=== PATIENT | male | born 1950 | race Caucasian/White ===

== ENCOUNTER 2019-12-16 06:39 | Day surgery (SDC) | payer OTHER ==
--- NOTE | 2019-12-11 14:25 | RAD REPORT ---
EXAM DESCRIPTION: RAD - Chest Pa And Lat (2 Views) - 12/11/2019 2:19 pm CLINICAL HISTORY: pre op Chest pain. COMPARISON: Thorax W/ Con dated 07/24/2018; RAD CHEST PA AND LAT (2 VIEWS) dated 12/20/2014 TECHNIQUE: PA and lateral views of the chest were obtained. FINDINGS: The lungs are hyperexpanded compatible with COPD. The heart is upper limit of normal in si ze. No fracture or aggressive bony process. IMPRESSION: COPD without acute process identified.
--- NOTE | 2019-12-11 15:03 | EKG ---
Test Date: 2019-12-11 Test Time: 14:33:39 Bus Matron: ANTOINE MEASUREMENT RESULTS: Intervals: Rate: 57 ME: 192 QRSD: 88 QT: 432 QTc: 420 Brent: P: 108 ME: 192 QRS: -2 T: 74 INTERPRETIVE STATEMENTS: Sinus bradycardia Otherwise normal ECG Compared to ECG 07/24/2018 15:37:02 Incomplete right bundle-branch block no longer present Electronically Signed On 12-11-19 15:02:38 CDT by Terry Clemons
[2019-12-11 15:05] LABS: Absolute Lymphocytes (CBC) 0.6 K/uL (0.7-4.9); Basophils % 0.7 % (0-1.3); Lymphocytes % 9.9 % (15.3-44.8); RBC Red Blood Cell Count 4.38 M/uL (4.33-5.43)
[2019-12-11 15:18] LABS: Potassium 4.6 mmol/L (3.5-5.1)
--- OUTSIDE RECORDS SUMMARY | 2019-12-16 06:42 | XMS REPORT | Continuity of Care Document ---
:1950 Author Organization [facility] t Address [facility] [place] [id number] Care Team Providers Name Role Phone Unavailable Unavailable Unavailable Problems This patient has no known problems. Allergies, Adverse Reactions, Alerts This patient has no known allergies or adverse reactions. Medications This patient has no known medications. Procedures This patient has no known procedures. Results This patient has no known results.
[2019-12-16] MEDS ORDERED: Ringers Lactate 1,000 ML IV ONE ×2 (07:14→09:19)
[2019-12-16] MEDS ORDERED: BUPIVACAINE 0.5% PF 10 ML VIAL ONE (07:22)
[2019-12-16] MEDS ORDERED: ROCURONIUM 50 MG/5 ML VIAL IV ONE (07:24)
[2019-12-16] MEDS ORDERED: propofoL 200 MG/20 ML VIAL IV ONE (07:24)
[2019-12-16] MEDS ORDERED: LIDOCAINE 2% MPF 5 ML VIAL ONE (07:24)
[2019-12-16] MEDS ORDERED: FENTANYL CITR 100 MCG/2 ML ONE (07:24)
[2019-12-16] MEDS ORDERED: MIDAZOLAM HCL 2 MG/2 ML INJ ONE (07:25)
[2019-12-16] MEDS ORDERED: CEFAZOLIN/SWI 1gm 1 GM/10 ML SYR ONE (08:17)
[2019-12-16] MEDS ORDERED: EPHEDRINE SULF 50 MG/ML VIAL ONE (08:34)
[2019-12-16] MEDS ORDERED: NS 0.9% VIAL 10 ML ONE (08:34)
[2019-12-16] MEDS ORDERED: Phenylephrine HCl 10 MG/ML 1 ML VIAL ONE (08:34)
[2019-12-16] MEDS ORDERED: dexAMETHasone 10 MG/ML VIAL ONE (08:46)
[2019-12-16] MEDS ORDERED: KETOROLAC 30 MG/ML INJ ONE (08:47)
[2019-12-16] MEDS ORDERED: ONDANSETRON 4 MG/2 ML VIAL ONE (08:47)
--- NOTE | 2019-12-16 09:07 | P.BOP ---
Preoperative diagnosis: large incarcerated right inguinal hernia Postoperative diagnosis: same Primary procedure: open repair large incarcerated right inguinal hernia with mesh Heating And Cooling Technician: MESFIN DOUGLAS (FRONT LINE LEADER) Estimated blood loss: <10cc Specimen: gb Findings: as sbove Anesthesia: General Complications: None Drain(s): Other (mesh sheet and plug) Transferred to: Recovery Room Condition: Good
--- NOTE | 2019-12-16 09:20 | P.BOP ---
Preoperative diagnosis: large incarcerated right inguinal hernia Postoperative diagnosis: same Primary procedure: open repair large incarcerated right inguinal hernia with mesh Hand Cooper Helper: MESFIN DOUGLAS (HAND TRIMMER) Estimated blood loss: <10cc Specimen: gb Complications: None Drain(s): Other (mesh sheet and plug) Transferred to: Recovery Room Condition: Good
--- NOTE | 2019-12-16 10:04 | OP ---
Surgeon: Ameya Holder MD Preoperative Diagnosis: Large incarcerated right inguinal hernia. Postoperative Diagnosis: Large incarcerated right inguinal hernia. Procedure: Open repair of tender right incarcerated inguinal hernia with mesh. Anesthesia: General plus local. Implants: Mesh is large mesh plug and sheath. Complications: None. Estimated Blood Loss: Less than 10 mL. Indications: This is a case of a 69-year-old patient, who comes to us with a large tender right ingu inal hernia with intestines coming through, feeling pain and discomfort over the area and he wants th at fixed. Benefits, alternatives, and risks of open repair of large right inguinal hernia with mesh fully discussed with the patient, which include, but not limited to infection, bleeding, damage to ad jacent structures, anesthesia complication, recurrence, DC, and even . He also understands this may not relieve his symptoms. He might need more than one surgical intervention. He has some chron ic pain and numbness of the area. He signed a consent. He was explained the most likely use of mesh in that area. Pros and cons of mesh placement were discussed with the patient. After understanding and allowing to ask questions, answered to his satisfaction, he did consent for mesh use. He unders tands right now we are in a situation and country with coronavirus. He understands the risks of cont racting coronavirus and the risks of it. He still has tenderness and intestines coming through in an d out and he is very concerned about that, so he wants that repaired now. The benefits, alternatives , and risks fully explained again. Description Of Procedure: The patient was brought to the operating room, placed in supine position. Anesthesia was done without complication. A time-out was called. Abdomen and inguinal area were pr epped and draped in a sterile fashion. Local anesthesia was applied, followed by sharp incision of t he skin in the right inguinal region. Incision was carried down to fascia. Kirk's fascia was open ed and then we found external oblique aponeurosis that was opened in direction of the fibers to conne ct to the superficial inguinal ring. The ilioinguinal nerve and iliohypogastric nerve were identifie d and protected behind external oblique aponeurosis and Mary was placed around the spermatic cord. At that moment, I proceeded to identify the spermatic cord structures. The hernia sac was separate d from the spermatic cord structures open. Small bowel reduced into the abdominal cavity after fully inspecting and making sure it is viable. The hernia sac was twisted and sutured with a 2-0 Prolene. At that moment, I proceeded to place a mesh plug over the area of the right inguinal ring and secur ed in place with VersaTack. After that, I placed a mesh sheet securing that to the pubic tubercle, s helving edge of inguinal ligament, transversalis fascia and the tail of this looped around the sperma tic cord without strangulation. At that moment, I proceeded then to place the ilioinguinal nerve and iliohypogastric nerve back into the inguinal canal, reconstructed the superficial inguinal ring, and closed the external oblique aponeurosis with 2-0 Prolene. Area was irrigated. Hemostasis was obtai ignacio. After that, Kirk's fascia was closed with 3-0 chromic and the skin with stanford. Sponge coun t and instrument counts were correct. The patient tolerated the procedure well. The patient sent to recovery in stable condition. OMAR/SCARLETT Voice ID: [id number] Report ID: [id number]
--- NOTE | 2019-12-16 10:07 | DS ---
Diagnosis: Incarcerated tender right inguinal hernia. Procedure: Open repair of incarcerated tender right inguinal hernia with mesh. Disposition: Home. Activity: As tolerated. No heavy lifting. Plan: Follow up in my office in 1 week. Call for appointment [phone]. Medication includes Tylenol No. 3 q.4 hours p.r.n. pain, Bactrim DS p.o. b.i.d. Cover the area for the next 48 hours and then m ay shower. Cold compress over the right inguinal region for 24 hours. OMAR/SCARLETT Voice ID: [id number] Report ID: [id number]
[2019-12-16 10:15] VITALS: BP 119/63; TEMP 97.5; O2SAT 98
[2019-12-16] MEDS ORDERED: CODEINE 30MG/APAP 300MG TAB ONE (10:35)
== END 2019-12-16 10:52 | disposition home or self-care (01) ==
LOC: OR 06:39
PROVIDERS: ATTEND Surgery
PROC: 0YU50JZ Supplement Right Inguinal Region with Synthetic Substitute, Open Approach (ICD-10-PCS; principal; 2019-12-16 08:15)
DX: K40.30 Unilateral inguinal hernia, with obstruction, without gangrene, not specified as recurrent (principal); I10 Essential (primary) hypertension; J44.9 Chronic obstructive pulmonary disease, unspecified; G47.30 Sleep apnea, unspecified; Z99.81 Dependence on supplemental oxygen; F17.210 Nicotine dependence, cigarettes, uncomplicated; Z11.59 Encounter for screening for other viral diseases
CPT/HCPCS: 93005; 85025; 80048; 36415; 88302; 71046; 49507; U0002; J2704; J2370; J2250; J3010; J1100; J0690; J7120 ×2; J2405

== ENCOUNTER 2021-10-11 04:46 | Emergency (ER) | payer MEDICARE ==
--- OUTSIDE RECORDS SUMMARY | 2021-10-11 04:48 | XMS REPORT | Continuity of Care Document ---
:1950 Author Organization [facility] t Address [address] [place] [id number] Care Team Providers Name Role Phone Shana-Mbayo_A_AH Attending Clinician Unavailable Shana-Mbayo_A_AH Admitting Clinician Unavailable Payers Payer Name Policy Type Policy Number Effective Date Expiration Date S ource [facility] - [id number] 2019 [employer] 00:00:00 (MEDICARE REPLACEMENT/ADVANT AGE - HMO) Problems This patient has no known problems. Allergies, Adverse Reactions, Alerts This patient has no known allergies or adverse reactions. Medications This patient has no known medications. Procedures This patient has no known procedures. Encounters Start End Encounter Admission Attending Care Care Encounter Source Date/Time Date/Time Type Type Clinicians Facility Department ID 2019-08-06 2019-08-06 Outpatient Shana-Mbayo VFP VFP [phone] [facility] 03:55:00 03:55:00 _A_AH [id number] Family Practic e 2019-08-06 2019-08-06 Outpatient Shana-Mbayo VFP VFP [phone] [facility] 03:55:00 03:55:00 _A_AH [id number] Family Practic e Results This patient has no known results.
[2021-10-11 06:05] LABS: Absolute Lymphocytes (CBC) 0.4 K/uL (0.7-4.9); Hematocrit 35.7 % (39.6-49.0); Lymphocytes % 5.5 % (15.3-44.8); MPV 7.6 fL (7.6-11.3); RBC Red Blood Cell Count 3.75 M/uL (4.33-5.43)
[2021-10-11] MEDS ORDERED: IPRATROPIUM BROM 0.5MG/2.5ML ONE (06:08)
[2021-10-11] MEDS ORDERED: ALBUTEROL 2.5 MG/3 ML NEB SOL ONE (06:08)
[2021-10-11 06:21] LABS: Protime INR 0.94
[2021-10-11 06:34] LABS: Potassium 4.3 mmol/L (3.5-5.1); Troponin High Sensitivity 17.1 pg/mL (<58.9)
--- NOTE | 2021-10-11 07:49 | RAD REPORT ---
EXAM DESCRIPTION: Olga Angio10/11/2021 7:05 am CLINICAL HISTORY: CVA COMPARISON: None TECHNIQUE: 50 cc Isovue 370 was administered intravenously. 3D MIP reconstruction performed All CT scans are performed using dose optimization technique as appropriate and may include automated exposure control or mA/KV adjustment according to patient size. FINDINGS: Severe plaque is present within the distal right common carotid, right carotid bulb/proxim al right external carotid artery. Superior plaque is present within very proximal right common carotid artery. Mild calcified plaque within the left common carotid, left internal and left external carotid arterie s. Dolichoectasia of the vertebrobasilar artery. Mild calcified plaque. No dissection seen IMPRESSION: Severe plaque proximal right common carotid artery and the distal right common carotid, right carotid bulb/proximal right external carotid artery. NASCET criteria used. Mild 0-49% stenosis Moderate 50-69% stenosis Severe 70-99% stenosis
--- NOTE | 2021-10-11 07:53 | RAD REPORT ---
EXAM DESCRIPTION: CTHead angio10/11/2021 7:03 am CLINICAL HISTORY: CVA COMPARISON: None TECHNIQUE: CT angiogram of the head was obtained. 3D MIPS reconstruction performed. All CT scans are performed using dose optimization technique as appropriate and may include automated exposure control or mA/KV adjustment according to patient size. FINDINGS: origin the right and left posterior cerebral arteries. A1 segment left anterior cerebral artery is hypoplastic. The remainder of the basilar, internal carotid, anterior cerebral, middle cerebral and posterior cere bral arteries are normal caliber. An aneurysm is not seen. A significant stenosis is not noted. IMPRESSION: No acute abnormality displayed
[2021-10-11] MEDS ORDERED: NA CHLORIDE 0.9% 1,000 ML ONE (08:13)
--- NOTE | 2021-10-11 08:48 | EDPHYS ---
Physician Documentation [facility] Name: Marc Bettencourt Age: 71 yrs Sex: Male : 1950 Arrival Date: 10/11/2021 Time: 04:49 Bed 3 Private MD: ED Physician John San HPI: 10/11 04:45 This 71 yrs old Male presents to ER via EMS with complaints of Facial Droop, Shortness mh7 Of Breath. 04:45 The patient presents to the emergency department with a speech or higher order brain mh7 function problem, aphasia, that is mild, facial droop. Onset: The symptoms/episode began/occurred today, at 03:50. Context: occurred at home, occurred while the patient was sitting. Associated signs and symptoms: Pertinent negatives: chills, dizziness, fever, headache, nausea, neck stiffness, paresthesias, seizure, syncope, near-syncope, blurred vision, double vision, visual field changes, loss of vision. Severity of symptoms: At their worst the symptoms were mild today, in the emergency department the symptoms have improved markedly. Patient's baseline: Neuro: alert and fully oriented, Motor: no deficits, Ambulation: walks without assistance, Speech: normal. Current symptoms: paralysis or paresis, of the right face, that is mild. Historical: - Allergies: 05:45 No Known Allergies; lp1 - Home Meds: 10:55 lisinopril 40 mg Oral tab 1 tab once daily [Active]; atenolol 100 mg Oral tab 1 tab tw2 once daily [Active]; amlodipine 10 mg tab 1 tab once daily [Active]; furosemide 20 mg Oral tab 1 tab once daily [Active]; Ventolin Rotahaler/Rotacaps 200 mcg Nebulizer CpDv [Active]; albuterol sulfate 2.5 mg /3 mL (0.083 %) Inhl nebu 3 mL 3 times per day [Active]; Trelegy Ellipta 100-62.5-25 mcg inhalation dsdv 1 puff once daily [Active]; - PMHx: 05:45 Hypertension; COPD; lp1 - Immunization history:: Adult Immunizations up to date, Client reports receiving the 2nd dose of the Covid vaccine. - Social history:: Smoking status: Patient reports the use of cigarette tobacco products, smokes one-half pack cigarettes per day. ROS: 04:45 Constitutional: Negative for fever, chills, and weight loss, Eyes: Negative for injury, mh7 pain, redness, and discharge, ENT: Negative for injury, pain, and discharge, Neck: Negative for injury, pain, and swelling, Cardiovascular: Negative for chest pain, palpitations, and edema. 04:45 Abdomen/GI: Negative for abdominal pain, nausea, vomiting, diarrhea, and constipation, Back: Negative for injury and pain, : Negative for injury, bleeding, discharge, and swelling, MS/Extremity: Negative for injury and deformity, Skin: Negative for injury, rash, and discoloration, Psych: Negative for depression, anxiety, suicide ideation, homicidal ideation, and hallucinations, Allergy/Immunology: Negative for hives, rash, and allergies, Endocrine: Negative for neck swelling, polydipsia, polyuria, polyphagia, and marked weight changes, Hematologic/Lymphatic: Negative for swollen nodes, abnormal bleeding, and unusual bruising. 04:45 Respiratory: Positive for shortness of breath, at rest. wheezing, expiratory. Exam: 04:45 Constitutional: This is a well developed, well nourished patient who is awake, alert, mh7 and in no acute distress. Head/Face: Normocephalic, atraumatic. Eyes: Pupils equal round and reactive to light, extra-ocular motions intact. Lids and lashes normal. Conjunctiva and sclera are non-icteric and not injected. Cornea within normal limits. Periorbital areas with no swelling, redness, or edema. Neck: Trachea midline, no thyromegaly or masses palpated, and no cervical lymphadenopathy. Supple, full range of motion without nuchal rigidity, or vertebral point tenderness. No Meningismus. Chest/axilla: Normal chest wall appearance and motion. Nontender with no deformity. No lesions are appreciated. Cardiovascular: Regular rate and rhythm with a normal S1 and S2. No gallops, murmurs, or rubs. Normal PMI, no JVD. No pulse deficits. Respiratory: Lungs have equal breath sounds bilaterally, clear to auscultation and percussion. No rales, rhonchi or wheezes noted. No increased work of breathing, no retractions or nasal flaring. Abdomen/GI: Soft, non-tender, with normal bowel sounds. No distension or tympany. No guarding or rebound. No evidence of tenderness throughout. Back: No spinal tenderness. No costovertebral tenderness. Full range of motion. Skin: Warm, dry with normal turgor. Normal color with no rashes, no lesions, and no evidence of cellulitis. MS/ Extremity: Pulses equal, no cyanosis. Neurovascular intact. Full, normal range of motion. Psych: Awake, alert, with orientation to person, place and time. Behavior, mood, and affect are within normal limits. 04:45 Neuro: Orientation: is normal, Mentation: is normal, Memory: is normal, Cranial nerves: mh7 facial droop noted on right, with forehead spared. Cerebellar function: is grossly normal, Motor: is normal, Sensation: is normal, Gait: not tested. Deep tendon reflexes are normal, Babinski testing is normal, seizure activity, is not displayed by the patient, Abnormal movements: there are no abnormal movements. Vital Signs: 04:45 BP 131 / 68; Pulse 73; Resp 22; Temp 97.5(TE); Pulse Ox 99% on 4 lpm NC; Weight 79.38 lp1 kg; Height 6 ft. 4 in. (193.04 cm); Pain 0/10; 05:30 BP 130 / 70; Pulse 76; Resp 22; Pulse Ox 98% on 4 lpm NC; lp1 06:38 BP 109 / 86; Pulse 75; Resp 17; Pulse Ox 93% on 2.5 lpm NC; lp1 07:55 BP 112 / 60; Pulse 82; Resp 15; Pulse Ox 100% on 2 lpm NC; tw2 08:30 BP 126 / 70; Pulse 73; Resp 19; Pulse Ox 100% on 2 lpm NC; tw2 09:30 BP 133 / 72; Pulse 71; Resp 19; Pulse Ox 96% on 2 lpm NC; tw2 10:30 BP 124 / 74; Pulse 119; Resp 17; Pulse Ox 96% on 4 lpm NC; tw2 04:45 Body Mass Index 21.30 (79.38 kg, 193.04 cm) lp1 NIH Stroke Scale Scores: 04:45 NIHSS Score: 2 mh7 04:57 NIHSS Score: 2 lp1 MDM: 04:45 Physician consultation: German Cho MD was contacted at 06:00, regarding patient's mh7 condition, Recommend CTA head and neck if normal may admit here, if not then transfer. Patient does not want thrombolytics.. 08:17 ED course: Patient care and report received from Dr Razo. Patient needs transfer but ms3 refusing until he discusses with his .. 08:19 Patient medically screened. ms3 09:36 Data reviewed: vital signs, nurses notes, lab test result(s), radiologic studies. ms3 Counseling: I had a detailed discussion with the patient and/or guardian regarding: the historical points, exam findings, and any diagnostic results supporting the discharge/admit diagnosis, lab results, radiology results, the need to transfer to another facility. ED course: Discussed case with Dr Hale and he will consult on patient.. 10:02 ED course: Discussed case with Dr Grider and she accepts patient. ms3 10/11 04:50 Order name: Basic Metabolic Panel; Complete Time: 08:00 [facility] 10/11 04:50 Order name: CBC with Diff; Complete Time: 06:20 [facility] 10/11 04:50 Order name: Protime (+inr); Complete Time: 08:00 10/11 04:50 Order name: Ptt, Activated; Complete Time: 08:00 [facility] 10/11 05:04 Order name: COVID-19 SARS RT PCR (Document "Date of Onset" if Symptomatic); Complete mw2 Time: 08:00 10/11 04:50 Order name: CT Stroke Brain w/o Contrast 10/11 04:50 Order name: Stroke CXR 1 View 10/11 05:21 Order name: Troponin High Sensitivity; Complete Time: 08:00 [facility] 10/11 05:29 Order name: ETOH Level; Complete Time: 08:00 [facility] 10/11 06:20 Order name: CT Head Angio; Complete Time: 08:00 [facility] 10/11 06:20 Order name: CT Neck Angio; Complete Time: 08:00 10/11 04:50 Order name: EKG; Complete Time: 04:51 10/11 04:50 Order name: Accucheck; Complete Time: 05:48 10/11 04:50 Order name: Cardiac monitoring; Complete Time: 05:38 10/11 04:50 Order name: EKG - Nurse/Tech; Complete Time: 05:38 10/11 04:50 Order name: IV Saline Lock; Complete Time: 05:48 10/11 04:50 Order name: Labs collected and sent; Complete Time: 05:48 10/11 04:50 Order name: NPO; Complete Time: 05:48 10/11 04:50 Order name: O2 Per Protocol; Complete Time: 05:48 10/11 04:50 Order name: O2 Sat Monitoring; Complete Time: 05:48 10/11 04:50 Order name: Stroke Swallow Screen; Complete Time: 05:48 10/11 05:24 Order name: Labs - recollect needed: all labs; Complete Time: 06:04 mw2 Administered Medications: 06:04 Drug: Albuterol 2.5 mg Route: Inhalation; lp1 06:04 Drug: AtroVENT (ipratropium) Aerosol 0.5 mg Route: Inhalation; lp1 08:12 Drug: NS 0.9% 1000 ml Route: IV; Rate: 1000 ml; Site: right wrist; tw2 09:10 Follow up: IV Intake: 1000ml tw2 10:15 Drug: Aspirin 325 mg Route: PO; tw2 Point of Care Testin:48 EMS checked fingerstick glucose in ED, reading of 108 lp1 Ranges: Critical Glucose Levels:Adult <50 mg/dl or >400 mg/dl <40 mg/dl or >180 mg/dl Disposition Summary: 10/11/21 08:48 Transfer Ordered Transfer Location: Other Acute Care Facility ms3 Reason: Higher level of care ms3 Condition: Stable ms3 Problem: new ms3 Symptoms: have improved ms3 Accepting Physician: .(10/11/21 11:07) tw2 Diagnosis - Transient cerebral ischemic attack, unspecified ms3 - hyponaremia ms3 Forms: - Medication Reconciliation Form ms3 - SBAR form ms3 NIH Stroke Scale - NIH Stroke Score Date: 10/11/2021 Time: 04:45 Total Score = 2 1a. Level of Consciousness (LOC) - 0(Alert) 1b. Level of Consciousness (LOC) (Month \\T\\ Age) - 0(Both) 1c. LOC Commands (Open \\T\\ Closes Eyes/Trainmaster) - 0(Both) 2. Best Gaze (Lateral Gaze Paresis) - 0(Normal) 3. Visual Field Loss - 0(No visual loss) 4. Facial Palsy - 1(Minor Paralysis) 5a. Left Arm: Motor (10-second hold) - 0(No drift) 5b. Right Arm: Motor (10-second hold) - 0(No drift) 6a. Left Leg: Motor (5-second hold - always test supine) - 0(No drift) 6b. Right Leg: Motor (5-second hold - always test supine) - 0(No drift) 7. Limb Ataxia (finger/nose \\T\\ heel/cuellar - test with eyes open) - 0(Absent) 8. Sensory Loss (pinprick arms/legs/face) - 0(Normal) 9. Best Language: Aphasia (description/naming/reading) - 0(No aphasia) 10. Dysarthria (speech clarity - read or repeat words) - 1(Mild to Moderate) 11. Extinction and Inattention (visual/tactile/auditory/spatial/personal) - 0(No abnormality) Initials: [facility] NIH Stroke Scale - NIH Stroke Score Date: 10/11/2021 Time: 04:57 Total Score = 2 1a. Level of Consciousness (LOC) - 0(Alert) 1b. Level of Consciousness (LOC) (Month \\T\\ Age) - 0(Both) 1c. LOC Commands (Open \\T\\ Closes Eyes/Trainmaster) - 0(Both) 2. Best Gaze (Lateral Gaze Paresis) - 0(Normal) 3. Visual Field Loss - 0(No visual loss) 4. Facial Palsy - 1(Minor Paralysis) 5a. Left Arm: Motor (10-second hold) - 0(No drift) 5b. Right Arm: Motor (10-second hold) - 0(No drift) 6a. Left Leg: Motor (5-second hold - always test supine) - 0(No drift) 6b. Right Leg: Motor (5-second hold - always test supine) - 0(No drift) 7. Limb Ataxia (finger/nose \\T\\ heel/cuellar - test with eyes open) - 0(Absent) 8. Sensory Loss (pinprick arms/legs/face) - 0(Normal) 9. Best Language: Aphasia (description/naming/reading) - 0(No aphasia) 10. Dysarthria (speech clarity - read or repeat words) - 1(Mild to Moderate) 11. Extinction and Inattention (visual/tactile/auditory/spatial/personal) - 0(No abnormality) Initials: lp1 Signatures: Dispatcher [employer] EDMS Cyndy Farrell, RN RN lp1 Francesca Rincon RN RN tw2 Rema Cano 2 John San, DO PALACIO ms3 Vipul Razo MD MD 7 Eric Campos RN RN as6 Corrections: (The following items were deleted from the chart) 05:20 05:05 Troponin High Sensitivity+C.LAB.BRZ ordered. EDMS EDMS 11:07 08:48 . ms3 tw2
--- NOTE | 2021-10-11 08:48 | ER ---
Nurse's Notes [facility] [place] Name: Marc Bettencourt Age: 71 yrs Sex: Male : 1950 Arrival Date: 10/11/2021 Time: 04:49 Bed 3 Private MD: Diagnosis: Transient cerebral ischemic attack, unspecified;hyponaremia Presentation: 10/11 04:45 Chief complaint: EMS states: Called for patient with shortness of breath, right sided lp1 facial droop and dysarthria; Per EMS, patient with wheezing in all lung lewis, given A/A neb tx, NS 250ml IV, Solu-Medrol 125mg IV. 04:45 Coronavirus screen: shortness of breath. Ebola Screen: No symptoms or risks identified lp1 at this time. Initial Sepsis Screen: Does the patient meet any 2 criteria? RR > 20 per min. Does the patient have a suspected source of infection? No. Patient's initial sepsis screen is negative. Risk Assessment: Do you want to hurt yourself or someone else? Patient reports no desire to harm self or others. Onset of symptoms was October 11, 2021 at 03:50. 04:45 Method Of Arrival: EMS: [facility] lp1 04:45 Acuity: FRANCO 2 lp1 05:00 An acute neurological deficit is present. The patients blood glucose was checked before lp1 arriving to the hospital and was found to be normal. 05:00 Note Patient on home O2 at 4L via NC. lp1 Triage Assessment: 05:00 The onset of the patients symptoms was October 11, 2021 at 03:50. lp1 Stroke Activation: Symptom onset < 3 hours Physician: Stroke Attending; Name: Dr. Razo; Notified At: 04:45; Arrived At: 04:50 Physician: Chief Stroke Resident; Name: ; Notified At: 04:45; Arrived At: Physician: Stroke Resident; Name: ; Notified At: 04:45; Arrived At: Physician: ED Attending; Name: ; Notified At: 04:45; Arrived At: Physician: ED Resident; Name: ; Notified At: 04:45; Arrived At: Historical: - Allergies: 05:45 No Known Allergies; lp1 - Home Meds: 10:55 lisinopril 40 mg Oral tab 1 tab once daily [Active]; atenolol 100 mg Oral tab 1 tab tw2 once daily [Active]; amlodipine 10 mg tab 1 tab once daily [Active]; furosemide 20 mg Oral tab 1 tab once daily [Active]; Ventolin Rotahaler/Rotacaps 200 mcg Nebulizer CpDv [Active]; albuterol sulfate 2.5 mg /3 mL (0.083 %) Inhl nebu 3 mL 3 times per day [Active]; Trelegy Ellipta 100-62.5-25 mcg inhalation dsdv 1 puff once daily [Active]; - PMHx: 05:45 Hypertension; COPD; lp1 - Immunization history:: Adult Immunizations up to date, Client reports receiving the 2nd dose of the Covid vaccine. - Social history:: Smoking status: Patient reports the use of cigarette tobacco products, smokes one-half pack cigarettes per day. Screenin:30 Abuse screen: Denies threats or abuse. Denies injuries from another. Nutritional lp1 screening: No deficits noted. Tuberculosis screening: No symptoms or risk factors identified. Fall Risk Total Muñoz Fall Scale indicates High Risk Score (45 or more points). Fall prevention measures have been instituted. Side Rails Up X 2 Placed Close to Nursing Station Family Present and informed to notify staff if the need to leave the bedside As available patient and family educated on Fall Prevention Program and Strategies. Assessment: 04:48 Reassessment: Patient to CT on arrival by EMS, noted to be drooling, able to respond lp1 appropriately to questions; airway patent. 05:00 General: Appears in no apparent distress. Behavior is appropriate for age. Pain: Denies lp1 pain. Neuro: Level of Consciousness is awake, alert, obeys commands, Oriented to person, place, situation, Senior Product Development Scientist are equal bilaterally Moves all extremities. Full function Speech slowed speech. minimal right facial droop. Pupils are PERRLA, Intact. Cardiovascular: Patient's skin is warm and dry. Rhythm is regular. Respiratory: Reports shortness of breath Airway is patent Trachea midline Respiratory effort is even, Respiratory pattern is regular, Breath sounds with wheezes bilaterally. Onset: The symptoms/episode began/occurred suddenly, the patient has mild shortness of breath. GI: Abdomen is non-distended. : No signs and/or symptoms were reported regarding the genitourinary system. EENT: No signs and/or symptoms were reported regarding the EENT system. Derm: Skin is intact, Skin is dry, Skin is normal. Musculoskeletal: Circulation, motion, and sensation intact. 05:00 Reassessment: Patient able to swallow own secretions. lp1 05:25 VAN Scoring: Arm Drift: Patients demonstrates NO arm weakness. Patient is VAN Negative. lp1 Patient has been NPO before screening. The patient is alert, and able to follow commands. The patient does not exhibit slurred or garbled speech. The patient is not exhibiting difficulty speaking. The patient does not exhibit difficulty understanding words. The patient is able to swallow own secretions with no drooling or need for suction. Patient tolerated one teaspoon of water. No drooling, immediate coughing, gurgling, or clearing of the throat was noted. The patient tolerated 90mL of water. No drooling, immediate coughing, gurgling, or clearing of the throat was noted. The patient passed the bedside swallow screening. Oral medications may be given as ordered. Contact Physician for further diet orders. Provider notified of bedside swallow screening results: Vipul Razo MD. 06:26 Reassessment: Patient appears in no apparent distress at this time. at bedside, lp1 patient noted to have decreased wheezing in all lung lewis. 06:45 Reassessment: Patient to CT via Stretcher. lp1 07:04 Reassessment: Patient returned from CT. lp1 07:04 Reassessment: Patient appears in no apparent distress at this time. Patient and/or tw2 family updated on plan of care and expected duration. Pain level reassessed. pt NAD, using urinal at this time. 07:56 Reassessment: Patient appears in no apparent distress at this time. Patient and/or tw2 family updated on plan of care and expected duration. Pain level reassessed. 08:12 Reassessment: Dr. Razo at bedside discussing poc and need to transfer pt for the tw2 level of care he needs. pt states "i am not comfortable with being transferred at all and i want to discuss this with my ", pt gave spouses phone #[phone]. no answer, voicemail left. provider notified. 09:30 Reassessment: Patient appears in no apparent distress at this time. Patient and/or tw2 family updated on plan of care and expected duration. Pain level reassessed. Patient is alert, oriented x 3, equal unlabored respirations, skin warm/dry/pink. 10:31 Reassessment: Patient appears in no apparent distress at this time. Patient and/or tw2 family updated on plan of care and expected duration. Pain level reassessed. Patient is alert, oriented x 3, equal unlabored respirations, skin warm/dry/pink. Vital Signs: 04:45 BP 131 / 68; Pulse 73; Resp 22; Temp 97.5(TE); Pulse Ox 99% on 4 lpm NC; Weight 79.38 lp1 kg; Height 6 ft. 4 in. (193.04 cm); Pain 0/10; 05:30 BP 130 / 70; Pulse 76; Resp 22; Pulse Ox 98% on 4 lpm NC; lp1 06:38 BP 109 / 86; Pulse 75; Resp 17; Pulse Ox 93% on 2.5 lpm NC; lp1 07:55 BP 112 / 60; Pulse 82; Resp 15; Pulse Ox 100% on 2 lpm NC; tw2 08:30 BP 126 / 70; Pulse 73; Resp 19; Pulse Ox 100% on 2 lpm NC; tw2 09:30 BP 133 / 72; Pulse 71; Resp 19; Pulse Ox 96% on 2 lpm NC; tw2 10:30 BP 124 / 74; Pulse 119; Resp 17; Pulse Ox 96% on 4 lpm NC; tw2 04:45 Body Mass Index 21.30 (79.38 kg, 193.04 cm) lp1 NIH Stroke Scale Scores: 04:45 NIHSS Score: 2 mh7 04:57 NIHSS Score: 2 lp1 ED Course: 04:49 Patient arrived in ED. mw2 04:53 Vipul Razo MD is Attending Physician. mh7 04:55 Patient has correct armband on for positive identification. Bed in low position. Call lp1 light in reach. Side rails up X2. Client placed on continuous cardiac and pulse oximetry monitoring. NIBP monitoring applied. 05:04 CT Stroke Brain w/o Contrast In Process Unspecified. EDMS 05:15 Maintain EMS IV. Dressing intact. Good blood return noted. Site clean \\T\\ dry. Gauge \\T\\ lp 1 site: 20g to R wrist. 05:27 Cyndy Farrell, RN is Primary Nurse. lp1 05:27 Arm band placed on left wrist. lp1 05:30 Triage completed. lp1 05:42 Stroke CXR 1 View In Process Unspecified. EDMS 07:05 CT Head Angio In Process Unspecified. EDMS 07:07 CT Neck Angio In Process Unspecified. EDMS 07:14 Primary Nurse role handed off by Cyndy Farrell RN tw2 07:14 Francesca Rincon RN is Primary Nurse. tw2 08:17 Attending Physician role handed off by Vipul Razo MD ms3 08:17 John San DO is Attending Physician. ms3 08:52 initiated transfer to [facility]. bd 10:29 Report given to MICHAEL Moreau [facility]. tw2 Administered Medications: 06:04 Drug: Albuterol 2.5 mg Route: Inhalation; lp1 06:04 Drug: AtroVENT (ipratropium) Aerosol 0.5 mg Route: Inhalation; lp1 08:12 Drug: NS 0.9% 1000 ml Route: IV; Rate: 1000 ml; Site: right wrist; tw2 09:10 Follow up: IV Intake: 1000ml tw2 10:15 Drug: Aspirin 325 mg Route: PO; tw2 Medication: 05:45 VIS not applicable for this client. lp1 Point of Care Testin:48 EMS checked fingerstick glucose in ED, reading of 108 lp1 Ranges: Intake: 09:10 IV: 1000ml; Total: 1000ml. tw2 10:20 PO: 20ml (Water); IV: 1000ml (IV Fluid); Total: 2020ml. tw2 Output: 10:20 Urine: 1900ml (Voided); Total: 1900ml. tw2 Outcome: 08:48 ER care complete, transfer ordered by . ms3 11:07 Patient left the ED. tw2 NIH Stroke Scale - NIH Stroke Score Date: 10/11/2021 Time: 04:45 Total Score = 2 1a. Level of Consciousness (LOC) - 0(Alert) 1b. Level of Consciousness (LOC) (Month \\T\\ Age) - 0(Both) 1c. LOC Commands (Open \\T\\ Closes Eyes/Resort Manager) - 0(Both) 2. Best Gaze (Lateral Gaze Paresis) - 0(Normal) 3. Visual Field Loss - 0(No visual loss) 4. Facial Palsy - 1(Minor Paralysis) 5a. Left Arm: Motor (10-second hold) - 0(No drift) 5b. Right Arm: Motor (10-second hold) - 0(No drift) 6a. Left Leg: Motor (5-second hold - always test supine) - 0(No drift) 6b. Right Leg: Motor (5-second hold - always test supine) - 0(No drift) 7. Limb Ataxia (finger/nose \\T\\ heel/cuellar - test with eyes open) - 0(Absent) 8. Sensory Loss (pinprick arms/legs/face) - 0(Normal) 9. Best Language: Aphasia (description/naming/reading) - 0(No aphasia) 10. Dysarthria (speech clarity - read or repeat words) - 1(Mild to Moderate) 11. Extinction and Inattention (visual/tactile/auditory/spatial/personal) - 0(No abnormality) Initials: [facility] NIH Stroke Scale - NIH Stroke Score Date: 10/11/2021 Time: 04:57 Total Score = 2 1a. Level of Consciousness (LOC) - 0(Alert) 1b. Level of Consciousness (LOC) (Month \\T\\ Age) - 0(Both) 1c. LOC Commands (Open \\T\\ Closes Eyes/Resort Manager) - 0(Both) 2. Best Gaze (Lateral Gaze Paresis) - 0(Normal) 3. Visual Field Loss - 0(No visual loss) 4. Facial Palsy - 1(Minor Paralysis) 5a. Left Arm: Motor (10-second hold) - 0(No drift) 5b. Right Arm: Motor (10-second hold) - 0(No drift) 6a. Left Leg: Motor (5-second hold - always test supine) - 0(No drift) 6b. Right Leg: Motor (5-second hold - always test supine) - 0(No drift) 7. Limb Ataxia (finger/nose \\T\\ heel/cuellar - test with eyes open) - 0(Absent) 8. Sensory Loss (pinprick arms/legs/face) - 0(Normal) 9. Best Language: Aphasia (description/naming/reading) - 0(No aphasia) 10. Dysarthria (speech clarity - read or repeat words) - 1(Mild to Moderate) 11. Extinction and Inattention (visual/tactile/auditory/spatial/personal) - 0(No abnormality) Initials: lp1 Signatures: Dispatcher [employer] EDLaxmi Thompson Laura, RN RN lp1 Francesca Rincon RN RN tw2 Rema Cano mw2 John San DO DO ms3 Vipul Razo MD MD 7 Corrections: (The following items were deleted from the chart) 06:09 04:45 BP 131 / 68; Pulse 73bpm; Resp 22bpm; Pulse Ox 99% 4 lpm Nasal Cannula; lp1 79.38 kg; Height 6 ft. 4 in.; BMI: 21.3; Pain 0/10; lp1 06:34 04:48 Reassessment: Patient to CT on arrival by EMS lp1 lp1
[2021-10-11] MEDS ORDERED: ASPIRIN 325 MG TAB ONE (10:12)
--- NOTE | 2021-10-11 10:48 | RAD REPORT ---
EXAM DESCRIPTION: RAD - Chest Single View - 10/11/2021 5:40 am CLINICAL HISTORY: The patient is 71 years old and is Male; stroke TECHNIQUE: Frontal view of the chest. COMPARISON: No relevant prior studies available. FINDINGS: Lungs: Prominent interstitial markings bilaterally. Pleural space: Left pleural effusion. Left hemidiaphragm is obscured which can be seen with left pleural effusion, as well as left lower lobe consolidation or atelectasis. No pneumothorax. Heart: Unremarkable. Mediastinum: Unremarkable. Bones/joints: Unremarkable. IMPRESSION: 1. Left pleural effusion. 2. Left hemidiaphragm is obscured which can be seen with left pleural effusion, as well as left low er lobe consolidation or atelectasis. 3. Prominent interstitial markings bilaterally. Electronically signed by: Scott Hoskins MD 10/11/2021 5:51 AM CDT Due to temporary technical issues with the PACS/Fluency reporting system, reports are being signed by the in house radiologist without review as a courtesy to ensure prompt reporting. The interpreting r adiologist is fully responsible for the content of the report.
--- NOTE | 2021-10-11 10:51 | RAD REPORT ---
EXAM DESCRIPTION: CT - Ct Stroke Brain Wo Cont - 10/11/2021 6:15 am ADDENDUM #1 Urgent finding reported to Dr. Razo at 10/11/2021 5:13 AM CDT Electronically signed by: Vipul Anthony 10/11/2021 6:53 AM CDT End of Addendum EXAM DESCRIPTION: CT of the head without contrast CLINICAL HISTORY: Neuro deficit, acute, stroke suspected COMPARISON: None available TECHNIQUE: Axial CT of the head obtained from the skull apex to the skull base without contrast. Thi s exam was performed according to our departmental dose-optimization program, which includes automate d exposure control, adjustment of the mA and/or kV according to patient size and/or use of iterative reconstruction technique. FINDINGS: No acute intracranial hemorrhage identified. No mass, mass effect, shift of the midline, a bnormal extra-axial fluid collection or CT evidence of acute ischemic change identified. The ventricu lar system and sulcal spaces are mildly enlarged compatible with mild cerebral atrophy. Scattered a reas of hypodensity throughout the supratentorial white matter are nonspecific and may be related to chronic small vessel ischemic change. Focal encephalomalacia in the left cerebellum compatible with r emote infarction. The visualized paranasal sinuses and mastoid air cells are well aerated. No skull fracture identifi ed. Visualized orbits and globes are unremarkable. Atherosclerotic calcification of the intracranial internal carotid arteries. IMPRESSION: 1. No acute intracranial abnormality by CT criteria. Electronically signed by: Vipul Anthony 10/11/2021 5:12 AM CDT Due to temporary technical issues with the PACS/Fluency reporting system, reports are being signed by the in house radiologist without review as a courtesy to ensure prompt reporting. The interpreting r adiologist is fully responsible for the content of the report.
[2021-10-11 11:39] VITALS: O2SAT 96
[2021-10-11 11:41] VITALS: BP 124/74
--- NOTE | 2021-10-12 07:41 | EKG ---
Test Date: 2021-10-11 Test Time: 05:19:18 Agile Project Manager: HARINI MEASUREMENT RESULTS: Intervals: Rate: 69 MT: 190 QRSD: 92 QT: 414 QTc: 443 Goodwell: P: 108 MT: 190 QRS: 30 T: 76 INTERPRETIVE STATEMENTS: Normal sinus rhythm with sinus arrhythmia Low voltage QRS Borderline ECG Compared to ECG 12/11/2019 14:33:39 Low QRS voltage now present Sinus bradycardia no longer present Electronically Signed On 10-12-21 07:37:23 CDT by Terry Clemons
== END 2021-10-11 11:07 ==
LOC: ER 04:46
DX: G45.9 Transient cerebral ischemic attack, unspecified (principal); E87.1 Hypo-osmolality and hyponatremia; I10 Essential (primary) hypertension; R29.702 NIHSS score 2; J44.9 Chronic obstructive pulmonary disease, unspecified; F17.210 Nicotine dependence, cigarettes, uncomplicated; Z20.822 Contact with and (suspected) exposure to COVID-19
CPT/HCPCS: 93005; 85025; 80048; 36415; 80320; 85610; 85730; 84484; 70496; 70498; 70450; 71045; 99284; U0003; Q9967; J7030

== ENCOUNTER 2021-12-25 07:34 | Day surgery (SDC) | payer OTHER ==
[2021-12-21 15:38] LABS: Absolute Lymphocytes (CBC) 0.7 K/uL (0.7-4.9); Hematocrit 32.8 % (39.6-49.0); Lymphocytes % 8.6 % (15.3-44.8); MCV 93.8 fL (80-100)
[2021-12-21 15:51] LABS: SARS-CoV-2 Antigen Rapid Res Negative (Negative)
[2021-12-21 15:59] LABS: Potassium 4.3 mmol/L (3.5-5.1)
--- NOTE | 2021-12-21 16:10 | RAD REPORT ---
EXAM DESCRIPTION: RAD - Chest Pa And Lat (2 Views) - 12/21/2021 3:30 pm CLINICAL HISTORY: Pre op pending hernia surgery COMPARISON: Portable 10/11/2021 TECHNIQUE: Frontal and lateral views of the chest were obtained. FINDINGS: The lungs are fibrotic as a baseline. Chronic pleural effusion and/ or pleural thickening in the left base has not changed from the May examination. Chronic interstitial pattern is stable. No finding to suggest any measurable superimposed interstitial edema or infiltrate. No lung mass. Heart size is normal and central vasculature is within normal limits. No pneumothorax. Right cost ophrenic angle blunting is present similar to comparison. No acute bony finding noted. No aortic abn ormality. IMPRESSION: Chronic pleural and parenchymal findings as detailed. No acute finding or significant change from May imaging.
[2021-12-25] MEDS ORDERED: CEFAZOLIN SODIUM 1 GM/VIAL ONE (07:52)
[2021-12-25] MEDS ORDERED: NA CHLORIDE 0.9% 50 ML ONE (07:52)
[2021-12-25] MEDS ORDERED: Ringers Lactate 1,000 ML IV ONE (07:52)
[2021-12-25] MEDS ORDERED: BUPIVACAINE 0.25% PF 10 ML VIAL ONE (08:27)
[2021-12-25] MEDS ORDERED: MIDAZOLAM HCL 2 MG/2 ML INJ ONE (08:42)
[2021-12-25] MEDS ORDERED: propofoL 200 MG/20 ML VIAL IV ONE (08:42)
[2021-12-25] MEDS ORDERED: ROCURONIUM 50 MG/5 ML VIAL IV ONE (08:43)
[2021-12-25] MEDS ORDERED: NEOSTIGMINE 1 MG/ML -10 ML VIAL ONE ×2 (08:45→08:48)
[2021-12-25] MEDS ORDERED: GLYCOPYRROLATE 0.2 MG/ML SYR ONE (08:45)
[2021-12-25] MEDS ORDERED: ONDANSETRON 4 MG/2 ML VIAL ONE (08:45)
[2021-12-25] MEDS ORDERED: FENTANYL CITR 100 MCG/2 ML ONE (08:46)
[2021-12-25] MEDS ORDERED: dexAMETHasone 10 MG/ML VIAL ONE (08:46)
[2021-12-25] MEDS ORDERED: LIDOCAINE 1% MPF 5 ML VIAL ONE (09:15)
[2021-12-25] MEDS ORDERED: BUPIVACAINE 0.5% PF 10 ML VIAL ONE (09:38)
--- NOTE | 2021-12-25 09:47 | P.BOP ---
Preoperative diagnosis: incarcerated tender left inguinal hernia Postoperative diagnosis: same Primary procedure: Laparoscopic repair of incarcerated tender left inguinal hernia with mesh Estimated blood loss: <10cc Specimen: none Findings: hernia with omentum Anesthesia: General Complications: None Implants: medium 3d mesh Transferred to: Recovery Room Condition: Good
[2021-12-25] MEDS ORDERED: Mastisol Adhesive Liq ONE (09:56)
[2021-12-25 10:31] VITALS: O2SAT 100
[2021-12-25] MEDS ORDERED: TAMSULOSIN 0.4 MG SR CAP ONE (11:02)
[2021-12-25 11:17] VITALS: BP 122/78; TEMP 96.1
--- NOTE | 2021-12-25 13:29 | OP ---
Date of Procedure: 12/25/2021 Surgeon: Ameya Holder MD Preoperative Diagnosis: Incarcerated tender left inguinal hernia. Postoperative Diagnosis: Incarcerated tender left inguinal hernia. Procedure: Laparoscopic repair of incarcerated tender left inguinal hernia with mesh. Estimated Blood Loss: Less than 10 mL. Specimen: None. Findings: Hernia with omentum. Anesthesia: General plus local. Implant: Medium 3D mesh. Indication: This is the case of a male, who comes to us with above diagnoses. Fully explained the b enefits, alternatives, and risks of laparoscopic possible open repair of left inguinal hernia with me sh, which include, but not limited to infection, bleeding, damage to adjacent structures, anesthesia complication, recurrence, chronic pain, chronic numbness, stroke, AR, and even . He also unders tands this may not relieve any symptoms. He might need more than one surgical intervention. He unde rstands the use of mesh and all the pros and cons of mesh and questions were discussed to his satisfa ction. The area of concern was marked by me and the patient in the holding room. Procedure In Detail: The patient was brought to the operating room, placed in supine position. Anes thesia was done without complication. Abdomen and inguinal region were prepped and draped in the usu al sterile fashion. Marcaine 0.5% was injected for local anesthetic followed by sharp incision of th e skin in the infraumbilical region. Incision was carried down to fascia until we find anterior rect us sheath that was opened on the left side and the muscle retracted laterally to expose the posterior rectus sheath. The extraperitoneal space was gently developed with the help of blunt dissection. T hen, a trocar was placed in that area, directed towards the pubic symphysis, and laparoscope was plac ed in that area. The balloon was inflated until we created the extraperitoneal space. The balloon w as deflated and removed under direct visualization and the camera was placed once again after the are a was inflated and a 5 mm trocar was placed just above the pubic symphysis and another one long-term be tween the first and the second one. The preperitoneal space was gently developed by exposing the inf erior epigastric vessels and keeping them anterior. Oneal ligament was dissected laterally to the j unction with the iliac veins. Dissection continued inferiorly to the iliopubic tract avoiding damage to the femoral branch of the genitofemoral nerve and lateral femoral cutaneous nerve. The cord stru ctures were carefully skeletonized and we noticed a direct hernia and indirect hernia. The direct he rnia was reduced. The hernia sac was removed from the spermatic cord after they were skeletonized an d reduced back into the abdominal cavity. At that moment, we introduced a medium 3D mesh through the periumbilical trocar site and directed to cover direct and indirect spaces. The mesh was secured in place with SorbaFix lateral and superior to the iliopubic tract and inferior medial to the Oneal li gament. We made sure hemostasis in that area. No bleeding. Local anesthesia was applied over that area. At that moment, while holding the mesh in place, we proceeded to deflate the area under direct visualization. At that moment, I proceeded to close the anterior rectus sheath with a #1 Vicryl and the skin in a subcuticular fashion with Steri-Strips on top. Sponge count, instrument counts correc t. The patient tolerated the procedure well. The patient was sent to recovery room in stable condit ion. At the end of the case, testicles are within the scrotum. OMAR/SCARLETT Voice ID: [id number] Report ID: [id number]
--- NOTE | 2021-12-25 13:29 | DS ---
Diagnosis: Incarcerated tender left inguinal hernia. Procedure: Laparoscopic repair of incarcerated tender left inguinal hernia with mesh. Disposition: Home. Condition: Stable. Plan: Follow up in my office in 1 week. Call for appointment at [phone]. Keep area dry for 48 kelly rs, then may shower. Keep Steri-Strip intact. The patient has a history of urinary retention. He a lso has to use a Alarcon today, which is a small Alarcon, although it is working well and we are going to continue with Jennifer as an outpatient and advised him once again to see his urologist to make sure t here is no pathology missing in that area. The patient tolerated the procedure well. OMAR/SCARLETT Voice ID: [id number] Report ID: [id number]
== END 2021-12-25 12:46 | disposition home or self-care (01) ==
LOC: OR 07:34
PROVIDERS: ATTEND Surgery
PROC: 0YU64JZ Supplement Left Inguinal Region with Synthetic Substitute, Percutaneous Endoscopic Approach (ICD-10-PCS; principal; 2021-12-25 09:15)
DX: K40.30 Unilateral inguinal hernia, with obstruction, without gangrene, not specified as recurrent (principal); I10 Essential (primary) hypertension; J44.9 Chronic obstructive pulmonary disease, unspecified; K21.9 Gastro-esophageal reflux disease without esophagitis; J45.909 Unspecified asthma, uncomplicated; J43.9 Emphysema, unspecified; G47.30 Sleep apnea, unspecified; Z86.73 Personal history of transient ischemic attack (TIA), and cerebral infarction without residual deficits; Z20.822 Contact with and (suspected) exposure to COVID-19
CPT/HCPCS: 85025; 80048; 36415; 71046; 87811; 49650; J2704; J2710 ×2; J2250; J3010; J1100; J7120; J2405; J0690